=== PATIENT | male | born 1985 | race Caucasian/White ===

== ENCOUNTER 2020-05-22 10:12 | Emergency (ER) | payer BC ==
--- OUTSIDE RECORDS SUMMARY | 2020-05-22 10:15 | XMS REPORT | Continuity of Care Document ---
:1985 Author Organization [facility] t Address [facility] [place] [address] Care Team Providers Name Role Phone Dominga Lopez Attending Clinician Problems This patient has no known problems. Allergies, Adverse Reactions, Alerts This patient has no known allergies or adverse reactions. Medications This patient has no known medications. Procedures This patient has no known procedures. Encounters Start End Encounter Admission Attending Care Care Encounter Source Date/Time Date/Time Type Type Clinicians Facility Department ID 2020-05-06 2020-05-06 Telephone LUIS MANUEL Rivera [id number] 00:00:00 00:00:00 Kirstin Borregoton [id number] [place] [id number] Professio [id number] nal 044 Building 2020-05-03 2020-05-03 Office LUIS MANUEL Rivera [id number] 16:11:37 16:46:51 Visit Kirstin A [facility] [id number] [place] [id number] Professio [id number] nal 044 Office Building One Results This patient has no known results.
[2020-05-22 13:26] LABS: Absolute Lymphocytes (CBC) 1.5 K/uL (0.7-4.9); Basophils % 0.5 % (0-1.3); Hematocrit 45.1 % (39.6-49.0); MPV 8.9 fL (7.6-11.3); RBC Red Blood Cell Count 4.99 M/uL (4.33-5.43)
[2020-05-22 13:35] LABS: ALT/SGPT 41 U/L (12-78); AST/SGOT 26 U/L (15-37); Albumin 3.9 g/dL (3.4-5.0); Alkaline Phosphatase 78 U/L (45-117); BUN Blood Urea Nitrogen 13 mg/dL (7-18); Bicarbonate 28 mmol/L (21-32); Bilirubin Direct < 0.1 mg/dL (0-0.2); Bilirubin Total 0.4 mg/dL (0.2-1.0); Glucose Level 106 mg/dL (74-106); Protein, Total 7.7 g/dL (6.4-8.2); Sodium Level 139 mmol/L (136-145)
--- NOTE | 2020-05-22 14:20 | ER ---
Nurse's Notes [facility] Name: Davin West Age: 35 yrs Sex: Male : 1985 Arrival Date: 05/22/2020 Time: 10:17 Bed 27 Private MD: Diagnosis: Unspecified hemorrhoids Presentation: 05/22 10:43 Chief complaint: Patient states: had a colonoscopy done Wednesday05/20/2020, had bleeding ca1 since. Rectal bleed, bright red and getting more and more. Prior to colonoscopy been bleeding also, with internal hemorrhoids, they also removed 2 polyps. Prior to the Colonoscopy they said my blood count was borderline low. Reports dizziness and lightheadedness this morning after use of bathroom. Coronavirus screen: Client denies travel out of the [place] in the last 14 days. At this time, the client does not indicate any symptoms associated with coronavirus-19. Ebola Screen: Patient negative for fever greater than or equal to 101.5 degrees Fahrenheit, and additional compatible Ebola Virus Disease symptoms Patient denies exposure to infectious person. Patient denies travel to an Ebola-affected area in the 21 days before illness onset. No symptoms or risks identified at this time. Initial Sepsis Screen: Does the patient meet any 2 criteria? No. Patient's initial sepsis screen is negative. Does the patient have a suspected source of infection? No. Patient's initial sepsis screen is negative. Risk Assessment: Do you want to hurt yourself or someone else? Patient reports no desire to harm self or others. Onset of symptoms was May 22, 2020. 10:43 Method Of Arrival: Ambulatory ca1 10:43 Acuity: EBENEZER 3 ca1 Historical: - Allergies: 10:47 No Known Allergies; ca1 - Home Meds: 10:47 None [Active]; ca1 - PMHx: 10:47 hemorrhoids; ca1 - PSHx: 10:47 Rectal Polyps removal; Foot surgery; ca1 - Immunization history:: Flu vaccine is not up to date. - Social history:: Smoking status: Patient denies any tobacco usage or history of. Screenin:01 Abuse screen: Denies threats or abuse. Denies injuries from another. Nutritional iw screening: No deficits noted. Tuberculosis screening: No symptoms or risk factors identified. Fall Risk Assessment: 13:00 General: Appears in no apparent distress. Behavior is calm, cooperative. Pain: Denies iw pain. Neuro: Level of Consciousness is awake, alert, obeys commands, Oriented to person, place, time, situation, Moves all extremities. Cardiovascular: Patient's skin is warm and dry. Respiratory: Respiratory effort is even, unlabored, Respiratory pattern is regular. GI: Reports rectal bleeding. Derm: Skin is intact, is healthy with good turgor. Musculoskeletal: Range of motion: intact in all extremities. 13:50 Reassessment: ECP at bedside discussing care. zb 13:58 Reassessment: Patient appears in no apparent distress at this time. Patient and/or iw family updated on plan of care and expected duration. Pain level reassessed. Patient is alert, oriented x 3, equal unlabored respirations, skin warm/dry/pink. Vital Signs: 10:43 BP 134 / 78; Pulse 65; Resp 16 S; Temp 98(TE); Pulse Ox 99% on R/A; Weight 74.84 kg ca1 (R); Height 5 ft. 6 in. (167.64 cm) (R); Pain 0/10; 13:59 BP 115 / 68; Pulse 63; Resp 16; Pulse Ox 98% on R/A; iw 10:43 Body Mass Index 26.63 (74.84 kg, 167.64 cm) ca1 ED Course: 10:17 Patient arrived in ED. as 10:46 Triage completed. ca1 10:47 Arm band placed on right wrist. ca1 12:52 Benjamín Tiwari PA is PHCP. jr8 12:52 Refugio Gusman MD is Attending Physician. jr8 13:00 Jana Ward RN is Primary Nurse. iw 13:04 Inserted saline lock: 20 gauge in right antecubital area, using aseptic technique. mt Blood collected. 14:19 Brandin Watts MD is Referral Physician. jr8 14:28 No provider procedures requiring assistance completed. IV discontinued, intact, iw bleeding controlled, No redness/swelling at site. Pressure dressing applied. 14:29 Patient has correct armband on for positive identification. iw Administered Medications: No medications were administered Outcome: 14:20 Discharge ordered by . jr8 14:29 Discharged to home ambulatory. iw 14:29 Condition: good 14:29 Discharge instructions given to patient, Instructed on discharge instructions, follow up and referral plans. Demonstrated understanding of instructions, follow-up care. 14:29 Patient left the ED. iw Signatures: Alisha Khan Irene, RN RN Benjamín Fuller PA PA jr8 Deandra Devine mt, Cheryl RN RN ca1 Shirley Mcgill RN RN ashwini
--- NOTE | 2020-05-22 14:20 | EDPHYS ---
Physician Documentation [facility] Name: Davin West Age: 35 yrs Sex: Male : 1985 Arrival Date: 05/22/2020 Time: 10:17 Bed 27 Private MD: ED Physician Refugio Gusman HPI: 05/22 14:20 This 35 yrs old Male presents to ER via Ambulatory with complaints of GI jr8 Bleeding, Abnormal Lab Results. 14:20 The patient presents to the emergency department with rectal bleeding, a moderate jr8 amount, bright red blood with bowel movement, in toilet bowl. Onset: The symptoms/episode began/occurred gradually, 2 week(s) ago. Abdominal pain: none is appreciated. Modifying factors: The symptoms are alleviated by nothing, the symptoms are aggravated by bowel movement. Associated signs and symptoms: Pertinent positives: dizziness at rest, shortness of breath. Severity of symptoms: At their worst the symptoms were mild in the emergency department the symptoms are unchanged. The patient has experienced a previous episode. The patient has been recently seen by a physician:. Patient stated that he had colonoscopy this past Wednesday for internal hemorrhoid bleeding. Was not banded at that time. Removed two polyps and was given suppositories. Stated that he came today for continued bleeding and was feeling lightheaded . Historical: - Allergies: 10:47 No Known Allergies; ca1 - Home Meds: 10:47 None [Active]; ca1 - PMHx: 10:47 hemorrhoids; ca1 - PSHx: 10:47 Rectal Polyps removal; Foot surgery; ca1 - Immunization history:: Flu vaccine is not up to date. - Social history:: Smoking status: Patient denies any tobacco usage or history of. ROS: 14:20 Eyes: Negative for injury, pain, redness, and discharge, ENT: Negative for injury, jr8 pain, and discharge, Neck: Negative for injury, pain, and swelling, Cardiovascular: Negative for chest pain, palpitations, and edema, Respiratory: Negative for shortness of breath, cough, wheezing, and pleuritic chest pain, Back: Negative for injury and pain, MS/Extremity: Negative for injury and deformity, Skin: Negative for injury, rash, and discoloration, Neuro: Negative for headache, weakness, numbness, tingling, and seizure. 14:20 Abdomen/GI: Positive for rectal bleeding, Negative for abdominal pain, nausea, vomiting, and diarrhea, hematemesis, rectal pain. Exam: 14:20 Eyes: Pupils equal round and reactive to light, extra-ocular motions intact. Lids and jr8 lashes normal. Conjunctiva and sclera are non-icteric and not injected. Cornea within normal limits. Periorbital areas with no swelling, redness, or edema. ENT: Nares patent. No nasal discharge, no septal abnormalities noted. Tympanic membranes are normal and external auditory canals are clear. Oropharynx with no redness, swelling, or masses, exudates, or evidence of obstruction, uvula midline. Mucous membranes moist. Cardiovascular: Regular rate and rhythm with a normal S1 and S2. No gallops, murmurs, or rubs. Normal PMI, no JVD. No pulse deficits. Respiratory: Lungs have equal breath sounds bilaterally, clear to auscultation and percussion. No rales, rhonchi or wheezes noted. No increased work of breathing, no retractions or nasal flaring. Abdomen/GI: Soft, non-tender, with normal bowel sounds. No distension or tympany. No guarding or rebound. No evidence of tenderness throughout. Back: No spinal tenderness. No costovertebral tenderness. Full range of motion. Skin: Warm, dry with normal turgor. Normal color with no rashes, no lesions, and no evidence of cellulitis. MS/ Extremity: Pulses equal, no cyanosis. Neurovascular intact. Full, normal range of motion. Neuro: Awake and alert, GCS 15, oriented to person, place, time, and situation. Cranial nerves II-XII grossly intact. Motor strength 5/5 in all extremities. Sensory grossly intact. Cerebellar exam normal. Normal gait. Vital Signs: 10:43 BP 134 / 78; Pulse 65; Resp 16 S; Temp 98(TE); Pulse Ox 99% on R/A; Weight 74.84 kg ca1 (R); Height 5 ft. 6 in. (167.64 cm) (R); Pain 0/10; 13:59 BP 115 / 68; Pulse 63; Resp 16; Pulse Ox 98% on R/A; iw 10:43 Body Mass Index 26.63 (74.84 kg, 167.64 cm) ca1 MDM: 12:53 Patient medically screened. jr8 14:18 Data reviewed: vital signs, nurses notes, lab test result(s). Data interpreted: Pulse jr8 oximetry: on room air is 98 %. Interpretation: normal. 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 ED course: Patient with normal H/H and platelet function. No diffuse bleeding at this time. VS stable. Discussed with patient that he needs to call Dr. Watts and schedule for another appointment for banding procedure. Patient agreed and would call upon discharge . 05/22 12:53 Order name: Basic Metabolic Panel; Complete Time: 14:15 [facility] 05/22 12:53 Order name: CBC with Diff; Complete Time: 14:15 [facility] 05/22 12:53 Order name: Hepatic Function; Complete Time: 14: [facility] 05/22 12:53 Order name: IV Saline Lock; Complete Time: 13:05 [facility] 05/22 12:53 Order name: TS; Complete Time: 14:15 [facility] 05/22 13:54 Order name: ABO/RH no charge; Complete Time: 14:15 [facility] 05/22 12:53 Order name: Labs collected and sent; Complete Time: 13:05 [facility] 05/22 13:09 Order name: Labs - recollect needed: recollect type and screen, label was written in bd gel.; Complete Time: 13:18 Administered Medications: No medications were administered Disposition: 17:33 Co-signature as Attending Physician, Refugio Gusman MD. rn Disposition: 05/22/20 14:20 Discharged to Home. Impression: Unspecified hemorrhoids. - Condition is Stable. - Discharge Instructions: Hemorrhoids. - Work release form, Medication Reconciliation Form, Thank You Letter, Antibiotic Education, Prescription Opioid Use form. - Follow up: Brandin Watts MD; When: Today; Reason: Recheck today's complaints, Continuance of care, Re-evaluation by your physician. - Problem is new. - Symptoms are unchanged. Signatures: Dispatcher [employer] [facility] Risa Henderson Irene, RN RN iw Nieto, Roman, MD MD rn Roszak, Benjamín, PA PA jr8 Albina Harrison RN RN ca1 Corrections: (The following items were deleted from the chart) 14:29 14:20 05/22/2020 14:20 Discharged to Home. Impression: Unspecified hemorrhoids. iw Condition is Stable. Forms are Medication Reconciliation Form, Thank You Letter, Antibiotic Education, Prescription Opioid Use. Follow up: Brandin Watts; When: Today; Reason: Recheck today's complaints, Continuance of care, Re-evaluation by your physician. Problem is new. Symptoms are unchanged. jr8
== END 2020-05-22 14:29 | disposition home or self-care (01) ==
LOC: ER 10:12
DX: K64.9 Unspecified hemorrhoids (principal); Z98.890 Other specified postprocedural states
CPT/HCPCS: 36415; 80048; 80076; 85025; 86850; 86900; 86901; 99283